=== PATIENT | male | born 1940 | race Caucasian/White ===

== ENCOUNTER 2016-11-25 09:37 | Inpatient (IN) | payer OTHER ==
[2016-11-25] VITALS (8 sets, daily range): BP systolic 121–158; BP diastolic 62–87
[~2016-11-25] VITALS: Ht 182.9 cm; Wt 95.8 kg
--- NOTE | ~2016-11-25 | PR ---
[place], [place] PROGRESS NOTE [facility]: [id number] UNIT #: [id number] ROOM: 419 DOCTOR: ILIR GLORIA MD,YOAV BIRTHDATE: [birth year] DOS: 11/27/2016 ADDENDUM TO THE PROGRESS NOTE DONE BY THE LAB SUPPORT TECHNICIAN: The patient was seen with [id number] encounter personally. Labs were reviewed. Physical examination performed. Decision made for the management personally done for the patient's today's visit. He agreed with the note which was done by the medical underwriter. The patient has been noted myelodysplastic syndrome diagnosed with bone marrow biopsy previously at [facility]. No further pulmonary workup at this time it is necessary. The patient has been noted chronic, stable problem. The patient has chronic granulomatous lung disease without any acute manifestations. YOAV HAZEL MD CM:PNTRANS [id number] YOAV GLORIA MD 11/28/16 0526 interface
--- NOTE | ~2016-11-25 | CON ---
[place], [place] REPORT OF CONSULTATION NAME: CHRISTEN KELLOGG UNIT #: [id number] ROOM: 416 DOCTOR: KAT MENDEZ MD BIRTHDATE: [birth year] DOS: 11/25/2016 HISTORY OF PRESENT ILLNESS: The patient is a pleasant 76-year-old Euro-Chinese gentleman who for the last 3 days has been complaining of chills, ____, fever, cold sweats, malaise as well as noticed bilateral cervical lymph node enlargement. [facility] and subsequently was told that he needs to go to the hospital for further evaluation and management. He also had a chest x-ray done which noted infiltrate and pulmonary nodule. He was also noted to have atrial fibrillation, for which he was started on Cardizem drip. PAST MEDICAL HISTORY: Significant for generalized anxiety disorder, hyperlipidemia and hypertension. SOCIAL HISTORY: He does not drink alcohol, smoked 1-1/2 packs per day for 45 years, quit in 2001 and no illicit drug use. PAST SURGICAL HISTORY: No surgical history. FAMILY HISTORY: Father at age 87 of Alzheimer's. Mother at age 95 of old age. ALLERGIES: No known allergies. MEDICATIONS: Azithromycin, ceftriaxone, sodium chloride, allopurinol, fluoxetine, hydrochlorothiazide, Naprosyn, Prilosec, simvastatin and terazosin. RADIOLOGY: CT of the chest showed the nodule noted on the current chest x-ray as a calcified granuloma. There are some areas of right upper lobe and right middle lobe scarring versus infiltration. The right hilar does not appear to be prominent. REVIEW OF SYSTEMS: CONSTITUTIONAL: No chills. No fatigue. No fever. No loss of appetite. No night sweats. No weakness. No weight loss. HEENT: No trouble swallowing. No loss of smell. No loss of hearing. No double vision. No pain. No discharge. ENT AND RESPIRATORY: No wheeze. No sore throat. No change in voice. No hearing loss. No nose bleed. No cough. No trouble breathing through nose. No shortness of breath. No coughing up blood. No epistaxis. CARDIOVASCULAR: No chest pain. No dizziness. No irregular heartbeat. No leg edema. No pain in legs while walking. No palpitations. No shortness of breath. DERMATOLOGIC: No acne. No hives. No laceration. No mole. No rash. ENDOCRINE: No cold intolerance. No diabetes. No fatigue. No hot flashes. No polydipsia. No polyuria. No urinating frequently. No weight loss. HEMATOLOGIC AND LYMPH: No fatigue. No easy bruising. GASTROENTEROLOGIC: No change in bowel habits. No indigestion. No frequent bloating. No vomiting blood. No abdominal cramping. No nausea. No heartburn. No vomiting. No abdominal pain. No dysphagia. No diarrhea. No constipation. [place], [place] REPORT OF CONSULTATION NAME: CHRISTEN KELLOGG UNIT #: [id number] ROOM: 416 DOCTOR: AKT MENDEZ MD BIRTHDATE: [birth year] No blood in stool. MALE REPRODUCTIVE: No testicular pain. No difficulty with erection. No diminished sexual drive. No penile discharge. MUSCULOSKELETAL: No back pain. No muscle pain or weakness. No neck pain. No tingling/numbness. No swelling/bruising. No osteoporosis treatment. OPTHALMOLOGIC: No double vision. No diminished vision. No loss of vision. UROLOGIC: No dysuria. No frequent nighttime urination. No pain with urination. No difficulty urinating. No blood in urine. No frequent urination. No urinary incontinence. NEUROLOGIC: No loss of sensation in specific body area. No vertigo. No burning pain in feet. No trouble with balance. No trouble with coordination. No loss of consciousness. No loss of feeling/power. No confusion. No headache. No tingling/numbness. PSYCHOLOGIC: No tinnitus. No headaches. No shortness of breath. No weight decrease. No nausea. No vomiting. No abdominal discomfort. No constipation. No diarrhea. No depression. No anxiety. PHYSICAL EXAMINATION: GENERAL: General appearance: Pleasant gentleman, in no apparent distress. VITAL SIGNS: Blood pressure 150/72, pulse 99, temperature 98.4 and respirations 14. HEENT: Oral mucosa appears intact. The external ears are normal in appearance. Nares are patent without lesions, exudates, erythema, or inflammation. Tongue is symmetrical. Uvula is midline. NECK AND THYROID: Neck shows no ulceration. Trachea is midline. Tender anterior cervical lymph node bilaterally about 1.7 cm. No thyromegaly. No carotid bruit or JVD. BREASTS: Normal. Nipples unremarkable. No drainage. No lumps felt on either side. HEART: Normal S1, S2, without significant murmur, rub, or gallop. LUNGS: Clear to auscultation and percussion with good air entry bilaterally. The patient is breathing easily without the use of accessory muscles. Diaphragmatic excursions are intact. ABDOMEN: No costovertebral angle tenderness. Soft. No organomegaly or masses. Nontender. No hernias present. Liver and spleen are not palpable. LYMPHATIC: No adenopathy noted in the cervical, supraclavicular, axillary, or inguinal regions. NEUROLGIC: Nonfocal. Oriented to person, place, and time. MENTAL STATUS: Appropriate for mood and affect. PERIPHERAL PULSES: No varicosities. Femoral and pedal pulses are palpable. EXTREMITIES: Without cyanosis, clubbing, or edema. No gross anomalies. LABORATORY DATA: Sodium 134, potassium 3.3, chloride 99, bicarb 25, creatinine of 1.99 and calcium 8.3. White count of 8.7, hemoglobin 12.9, hematocrit 37.5, MCV 85.8 and platelet count of 69,000. Peripheral smear shows metamyelocytes and myelocytes. ASSESSMENT: 1. Bilateral cervical lymphadenopathy, probably secondary to sepsis. 2. Possible pneumonia. [place], [place] REPORT OF CONSULTATION NAME: CHRISTEN KELLOGG UNIT #: [id number] ROOM: 416 DOCTOR: KAT MENDEZ MD BIRTHDATE: [birth year] 3. Thrombocytopenia of unknown etiology, probably sepsis/other causes. 4. Mild hyponatremia. PLAN: I had detailed discussion with the patient. We will reevaluate him in a few days. If he continues to have lymphadenopathy and overall situation improves, then he needs need further workup including a CT of the neck, etc. As far as the thrombocytopenia is concerned, we will review peripheral smears and get workup for thrombocytopenia. Depending upon that, further intervention. We will continue broad spectrum antibiotics. I had detailed discussion with the patient about it and he seemed to understand it. Ample time was given to the patient to ask me questions. We will follow. Thank you for consulting and letting me participate in the care of this interesting patient. KAT MENDEZ MD CM:CONSTR:REPORT OF CONSULTATION 1741 11/26/16 0948 interface
--- NOTE | ~2016-11-25 | CON ---
[place], [place] REPORT OF CONSULTATION NAME: CHRISTEN KELLOGG UNIT #: [id number] ROOM: 416 DOCTOR: JENNIFER ZARATE DO BIRTHDATE: [birth year] DOS: REASON FOR CONSULT: Pneumonia. CONSULT REQUESTED BY: Hospitalist service. This is a pulmonary consultation, evaluation and management. HISTORY OF PRESENT ILLNESS: This is a 76-year-old male who went to [facility] yesterday with concerns of cervical lymphadenopathy and symptoms that were thought related to the flu. The patient states he may have had fever. He was feeling fatigued, sweaty and chills. He was advised to come to the hospital by the [facility]. In the hospital, he was noted to have irregular and rapid rhythm in the ER and was started on Cardizem drip. His chest x-ray in the ED showed right nodule. Further imaging was done. He had a CT chest, which showed calcified granuloma and right upper lobe, right middle lobe scarring versus infiltration. The patient denies any history of arrhythmias or heart disease. The patient states he has history of bone marrow biopsy done at the ____ [facility], which was normal. The patient said last time he had enlarged lymph node was in his armpit and he was given antibiotics and they went away. The patient denies any current fevers, chills, nausea, vomiting, shortness of breath or chest pain at this time. REVIEW OF SYSTEMS: CONSTITUTIONAL: Denies weight loss, weight gain, fever or chills day before yesterday per patient. HEENT: Denies vision changes, denies hearing loss, ear pain, eye pain, mouth pain, nose pain, throat pain or dysphagia. CARDIOVASCULAR: Denies chest pain, lower extremity edema or palpitations. RESPIRATORY: Denies shortness of breath, cough, hemoptysis, wheezing, dyspnea on exertion, paroxysmal nocturnal dyspnea or sputum production. ABDOMINAL: Denies abdominal pain, nausea, vomiting, diarrhea, constipation, melena, hematochezia or loss of appetite. GENITOURINARY: Denies dysuria, hematuria, increase in frequency or urgency. NEUROLOGIC: Denies lightheadedness, dizziness or confusion. PSYCHIATRIC: Denies depression, anxiety or substance abuse. ENDOCRINE: Denies polydipsia, heat intolerance or cold intolerance. SKIN: Denies new rashes, lesions or ulcers. Remaining systems were reviewed with the patient. They were noted to be negative. PAST MEDICAL HISTORY: Depression, generalized anxiety disorder, GERD, gout, hyperlipidemia and hypertension. PAST SURGICAL HISTORY: History of bone marrow biopsy done at , history of vasectomy, history of EGD, history of colonoscopy and polypectomy. SOCIAL HISTORY: Does not drink alcohol or does not use any illicit drugs. Did smoke in the past, 1-1/2 packs per day for 45 years and quit in 2001. [place], [place] REPORT OF CONSULTATION NAME: CHRISTEN KELLOGG UNIT #: [id number] ROOM: 416 DOCTOR: JENNIFER ZARATE DO BIRTHDATE: [birth year] FAMILY HISTORY: Father at age 87 due to Alzheimer disease. Mother at age 95 due to leukemia. CURRENT MEDICATIONS: Azithromycin 500 mg p.o. daily, Rocephin 1 g q. day, hydrochlorothiazide 25 mg p.o. q. day, Prozac 20 mg p.o. q. day, allopurinol 300 mg p.o. q. day, Prilosec 20 mg p.o. q. day, terazosin 10 mg p.o. at bedtime, simvastatin 10 mg p.o. at bedtime, verapamil 80 mg q. 8 hours and other p.r.n. medications as noted in the chart. ALLERGIES: No known drug allergies. PHYSICAL EXAMINATION: VITAL SIGNS: T-max of 100 Fahrenheit, pulse of 105, respiratory rate 20, blood pressure is 132/87 and pulse ox is 97% on room air. GENERAL APPEARANCE: Alert, awake, responsive, cooperative, well groomed, no acute distress. HEENT: Shows the head was atraumatic. EYES: Nonicteric. NECK: Without lesions. There is slight palpable approximately 1.5 cm periauricular lymphadenopathy on the left side. HEART: Irregular rhythm, tachycardia. No edema in the lower extremities. LUNGS: Normal breath sounds. No respiratory distress. No rales, rhonchi, wheezing, stridor, stridor or pleural rub. ABDOMEN: Soft, positive bowel sounds, nontender, nondistended. No mass, rigidity, guarding or abdominal pain. EXTREMITIES: No clubbing, cyanosis, erythema or edema. NEUROLOGIC: Grossly intact. No focal neurological deficit. PSYCHOLOGICAL: Good historian. Fair judgment. Fair insight. Good recent memory. Good remote memory. Exhibits normal mood. Normal affect. SKIN: Warm and dry. No rashes, no ulcerations, no induration, no tightening. LABORATORY DATA: Admission CMP: BUN is 30, creatinine 1.99, sodium of 134, potassium of 3.3, calcium of 8.3. Troponin less than 0.015. AST 18, ALT 21. Lactic acid baseline at 1.2. CBC: White cell count of 8.7, hemoglobin of 12.9, platelet of 69. Chest x-ray on admission showed small lower lateral right perihilar infiltrate, right nodule. Recommended CT chest without contrast on admission showed the nodule noted on the chest x-ray represented calcified granuloma. There are small areas of right upper lobe and right middle lobe scarring versus infiltration. Right hilum does appear prominent. Strep screen of throat done on admission was negative for group A beta hemolytic Streptococcus. Group B cultures pending. Echocardiogram showed left ventricular EF of 70%, otherwise normal. Monospot test was negative. ESR was 72. IMPRESSIONS: 1. Right upper lobe, right middle lobe scarring versus infiltrate, possible viral etiology. 2. Old granulomatous disease. 3. Nonspecific lymphadenopathy. 4. Atrial fibrillation, rate controlled with verapamil. [place], [place] REPORT OF CONSULTATION NAME: CHRISTEN KELLOGG UNIT #: [id number] ROOM: [facility] DOCTOR: JENNIFER ZARATE DO BIRTHDATE: [birth year] 5. Acute renal failure with tubular necrosis. 6. Hypokalemia. 7. Tachycardia. 8. Hypertension. 9. Hyperlipidemia. 10. Depression. 11. Gastroesophageal reflux disease. 12. Gout. TREATMENT PLAN: 1. The patient can be continued on antibiotics, the patient can be discharged from pulmonary perspective. 2. Infectious disease is following and has ordered certain labs. Follow up with the labs with Infectious Disease. Cardiology is following for the AFib with RVR. 3. Dr. Conley is consulted for the bilateral cervical lymphadenopathy. 4. Supportive care. JENNIFER ZARATE DO YOAV HAZEL MD CM:CONSTR:REPORT OF CONSULTATION 1004 11/26/16 1139 interface
--- NOTE | ~2016-11-25 | PR ---
[place], [place] PROGRESS NOTE [id number] UNIT #: [id number] ROOM: 416 DOCTOR: JENNIFER ZARATE DO BIRTHDATE: [birth year] DOS: 11/27/2016 SUBJECTIVE: The patient was seen and evaluated today with Dr. Hazel. The patient is awake, alert and responsive. No nausea, vomiting, diarrhea, lightheadedness, dizziness, palpitations, chest pain or shortness of breath. The patient denies of any complaints at this time. He does believe his lymphadenopathy is improving some. OBJECTIVE: VITAL SIGNS: Temperature 98.1, pulse 98, respiratory rate 20, blood pressure 113/84, pulse ox is 96% at room air. GENERAL: Awake, alert, no distress, responsive, cooperative, noted with ebdg-pz-[id number] chronic obesity. NECK: Supple, without lesion, no ulceration. Trachea midline. Thyroid not enlarged. Palpable and slightly tender periauricular lymphadenopathy bilaterally, left greater than right. There was no supraclavicular lymphadenopathy. CARDIOVASCULAR: No murmur. Tachycardia is regular. No edema in lower extremities. RESPIRATORY: Normal breath sounds. No respiratory distress. Lung sounds are not diminished. There are no rales, rhonchi, wheezing or stridor. ABDOMEN: Soft, positive bowel sounds, nontender, nondistended. There are no masses or rebound tenderness, rigidity, guarding, or abdominal pain. EXTREMITIES: No clubbing, no cyanosis, no erythema, no edema. NEUROLOGIC: Grossly intact. No focal neurologic deficit. PSYCHOLOGIC: Good historian. Fair judgment, fair insight, good recent memory. SKIN: Warm and dry, no rashes, no ulceration, no induration, no tightening. LABORATORY DATA: Chemistry: Sodium 138, potassium 3.4, BUN 27, creatinine 1.81, glucose of 88. Hematology: White cell count of 6.7, hemoglobin of 11.3, platelet count of 66. Serology: Woods screen negative. HIV 1 and 2, fourth generation nonreactive. ASSESSMENT: 1. Nonspecific lymphadenopathy, possible viral etiology. 2. Chronic granulomatosis lung disease without any active manifestation at this time. 3. Thrombocytopenia, etiology unclear. The patient's records from bone marrow biopsy at [place], [place] showed pathologic markers indicating possibly myelodysplastic syndrome. 4. Atrial fibrillation, rate controlled with verapamil. TREATMENT PLAN: 1. Monitor and follow the recommendation of Infectious Disease services for any possibility of viral or bacterial infection. 2. Cardiology following for AFib. 3. Heme/Onc following for cervical lymphadenopathy and thrombocytopenia. 4. Supportive care at this time. [place], [place] PROGRESS NOTE NAME: CHRISTEN KELLOGG UNIT #: [id number] ROOM: 416 DOCTOR: JENNIFER ZARATE DO BIRTHDATE: [birth year] JENNIFER ZARATE DO YOAV HAZEL MD CM:PNOKSANA 1103 1142 JENNIFER ZARATE DO 11/27/16 1141 interface
--- NOTE | ~2016-11-25 | EKG ---
[place], [place] ELECTROCARDIOGRAM REPORT NAME: CHRISTEN KELLOGG UNIT #: [id number] ROOM: 416 DOCTOR: ILIR GLORIA MD,YOAV BIRTHDATE: [birth year] DOS: 11/25/2016 The electrocardiogram was done on 11/25/2016 at 10:10 am. The underlying rhythm appeared to be sinus arrhythmia with sinus tachycardia with heart rate of 111 beats per minute. EKG was noted somewhat low voltage with poor R-wave progression. YOAV HAZEL MD CM:EKGRPT:ELECTROCARDIOGRAM REPORT 1215 1247 YOAV GLORIA MD
--- NOTE | ~2016-11-25 | CON ---
[place], [place] REPORT OF CONSULTATION NAME: CHRISTEN KELLOGG [facility] #: [id number] UNIT #: [id number] ROOM: 416 DOCTOR: ILIR GLORIA MDYOAV BIRTHDATE: [birth year] DOS: 11/26/2016 PULMONARY CONSULTATION, EVALUATION AND MANAGEMENT. The patient was independently seen and examined. All the history was confirmed from the patient personally and physical examination performed. All the labs were reviewed. The note which has been dictated for this patient by the bilingual medical receptionist, was approved. HISTORY OF PRESENT ILLNESS: In summary, this is a 76-year-old male patient who has been admitted to the hospital. The patient started with symptoms of fever or chills and sweating which occurred for the past few days. The symptoms have been noted worsening. The patient stated that he has noted enlargement of the lymph nodes in the neck. He presented to the Emergency Room, was assessed. He has atrial fibrillation with rapid ventricular response noted on admission as a new onset treated with intravenous Cardizem drip. This morning, the patient was reported improvement in respiratory symptoms. He denies symptoms of chest pain or hemoptysis. REVIEW OF SYSTEM: As performed by the bilingual medical receptionist. PAST MEDICAL HISTORY: Essentially noted with history of: 1. Hyperlipidemia. 2. Essential hypertension. 3. Anxiety disorder. 4. Moderate obesity. PAST SURGICAL HISTORY: Noted with bone marrow biopsy in the past. SOCIAL HISTORY: The patient was noted as use of cigarettes younger age one and half pack of cigarettes per day, discontinued approximately in 1996. He is and does not have any children. There is no known history of occupation related pulmonary exposure described. FAMILY HISTORY: Reported father at the age of 87 years with complication of Alzheimer's disease and mother due to old age at the age of 9595 years old. MEDICATIONS: From home were noted use of allopurinol, fluoxetine, hydrochlorothiazide, naproxen, Prilosec, simvastatin, and terazosin. DRUG ALLERGY HISTORY: The patient was noted no known drug allergies. PHYSICAL EXAMINATION: GENERAL: A 76-year-old male who has been currently noted without any acute distress. Height of 6 feet, weight of 211 pounds, BMI 28.6. VITAL SIGNS: The temperature was noted as 100 degrees Fahrenheit, respiratory rate 18-20, heart rate of 104-87, blood pressure 139/71 to 149/79. The pulse oxygen saturation of the patient on room air was noted as 95% saturation. HEENT: Noted with vnub-rk-glmfqmpv chronic obesity. [place], [place] REPORT OF CONSULTATION NAME: CHRISTEN KELLOGG UNIT #: [id number] ROOM: [facility] DOCTOR: YOAV HUFF MD BIRTHDATE: [birth year] NECK: Supple. Small lymph node was palpated in the left periauricular area. No other significant palpable lymphadenopathy was noted. There was no supraclavicular lymphadenopathy. CARDIOVASCULAR SYSTEM: S1, S2 is audible. LUNGS: The patient was noted without any wheezing or crackles. Breaths are noted mildly decreased. There was no wheezing. ABDOMEN: Soft, moderate obesity, nontender. Bowel sounds present. EXTREMITIES: Shows no edema, clubbing, cyanosis. CENTRAL NERVOUS SYSTEM: The patient was nonfocal. SKIN: Showed no lesions or rashes. MUSCULOSKELETAL: No acute deformities. LABORATORY DATA: CBC on 11/25/2016 was noted with WBC count normal, platelet count decreased 69,000, hemoglobin 12.9, hematocrit 37.5. TSH was noted as normal yesterday. Lactic acid yesterday noted normal. CMP yesterday, BUN 30, creatinine 1.99, sodium 134. CMP of the patient this morning, BUN 27, creatinine 1.81, potassium 3.3. CBC this morning, platelet count was still noted decreased at 66,000. The HIV test was noted nonreactive today. The ESR was noted elevated at 72. The troponins were normal. The chest x-ray of the patient on 11/25/2016 does not show any acute pulmonary infiltration. The patient was noted as the nodule in the right lower lobe which appeared to be calcified granuloma. CT scan of the chest that was done without contrast yesterday, the patient would be considered limited for assessment of the mediastinal windows. However, there was calcification lymph nodes. The patient was noted in the left hilar area as well as a calcified granuloma was noted in the right lung as well. There was no noncalcified nodules present. Minimal area of infiltration was noted in the right upper lobe. There were no pleural effusions. IMPRESSION: 1. The patient who has been currently admitted to the hospital with nonspecific finding may be a viral syndrome to be considered. There was no clinical evidence of acute pneumonia. 2. Lymphadenopathy. The patient in the mediastinum will be considered related to chronic granulomatous lung disease without any active manifestation at this time would be considered. 3. Thrombocytopenia, etiology is unclear. Consider bone marrow problems as other etiology of acute reduction in the platelet count for other reasons. The patient was also suspected possibly to chronic kidney disease with some superimposed acute component may be related to the volume depletion and dehydration. PLAN OF MANAGEMENT: Monitor and follow the recommendation of Infectious Disease Services, which is already being investigating this patient for any possibility of viral or bacterial infection. Consider CT scan of the neck to assess for any potential lymphadenopathy present to be biopsied accordingly. There was no need for biopsy of the lymph nodes in the thorax. The patient is already seen by the Hematology Services as well for the assessment of the thrombocytopenia follow the recommendation. Usual care, other treatment plan and management. Abstinence from tobacco use. Clinical assessment of COPD. The patient needs to [place], [place] REPORT OF CONSULTATION NAME: CHRISTEN KELLOGG UNIT #: [id number] ROOM: [facility] DOCTOR: YOAV HUFF MD BIRTHDATE: [birth year] be done as an outpatient to consider any potential treatment if necessary after that. YOAV HAZEL MD CM:CONSTR:REPORT OF CONSULTATION 1204 11/27/16 0201 interface
--- NOTE | ~2016-11-25 | EKG ---
[place], [place] ELECTROCARDIOGRAM REPORT NAME: CHRISTEN KELLOGG UNIT #: [id number] ROOM: 416 DOCTOR: ILIR GLORIA MD,YOAV BIRTHDATE: [birth year] DOS: 11/26/2016 ELECTROCARDIOGRAM This EKG was done 11/25/2016 at 2300 hours and 33 minutes. The electrocardiogram for this patient currently suggest of atrial fibrillation with a rapid ventricular response for this patient with heart rate of 128 beats per minute. Poor R-wave progression, the patient is also noted in the chest leads. Nonspecific ST-T changes are noted in the I aVL. YOAV HAZEL MD CM:EKGRPT:ELECTROCARDIOGRAM REPORT 1209 1228 YOAV GLORIA MD
--- NOTE | ~2016-11-25 | PR ---
[place], [place] PROGRESS NOTE NAME: CHRISTEN KELLOGG UNIT #: [id number] ROOM: 419 DOCTOR: JENNIFER ZARATE DO BIRTHDATE: [birth year] DOS: 11/28/2016 SUBJECTIVE: The patient was seen and evaluated today with Dr. Hazel. The patient is alert, awake, responsive and oriented. The patient denies any nausea, vomiting, diarrhea, lightheadedness, dizziness, palpitations, chest pain or shortness of breath at this time. The patient states that he is slightly congested and he is feeling some gargling. OBJECTIVE: VITAL SIGNS: Temperature 97.6, pulse rate 87, respiratory rate 18, pulse ox of 96% on room air. GENERAL: Alert, awake, no distress, responsive, mild to moderate chronic obesity noted. NECK: Supple, without deviation. CARDIOVASCULAR: S1, S2 audible. RESPIRATORY: Normal breath sounds. No respiratory distress. Lung sounds are not diminished. There are no rales, rhonchi, wheezing or stridor. ABDOMEN: Soft, nontender. EXTREMITIES: No edema noted. LABORATORY DATA: White cell count of 7.2, hemoglobin of 10.6, platelet count of 68. Sodium of 138, BUN of 31, creatinine of 1.73, glucose of 168. ASSESSMENT: 1. Nonspecific lymphadenopathy, possible viral etiology. 2. Chronic granulomatous disease without any active manifestation at this time. 3. Thrombocytopenia, unclear etiology. The patient's record from bone marrow biopsy at [facility] showed myelodysplastic syndrome. 4. Atrial fibrillation. Cardiology is following. 5. PPD showed 19 mm induration. PLAN: Monitor and follow recommendation from infectious disease services and have patient continue on isoniazid, rifampin per infectious disease. The patient can have outpatient followup with hematology/oncology and infectious disease services. No supportive care at this time. No change of management from pulmonary perspective. JENNIFER ZARATE DO [place], [place] PROGRESS NOTE NAME: CHRISTEN KELLOGG UNIT #: [id number] ROOM: 419 DOCTOR: JENNIFER ZARATE DO BIRTHDATE: [birth year] YOAV HAZEL MD CM:ELICEO [id number] JENNIFER ZARATE DO 11/28/16 1501 interface
--- NOTE | ~2016-11-25 | PR ---
[place], [place] PROGRESS NOTE NAME: CHRISTEN KELLOGG UNIT #: [id number] ROOM: 419 DOCTOR: ILIR GLORIA MD,YOAV BIRTHDATE: [birth year] DOS: 11/28/2016 The patient was independently seen and examined today. The labs were reviewed. History was confirmed. PPD was reported positive as 15 mm for this patient that was done on this admission. The patient was started on the combination of INH, rifampin, and vitamin B6 to be continued for 3 months for latent tuberculosis infection, management per recommendation of Infectious Disease Services. The patient has been placed on the negative pressure isolation, which needs to be discontinued since there has not been any evidence of clinical suspicion of active tuberculosis, but TB Gold test remains pending. Negative pressure isolation to be discontinued for this patient. He has been considered for home discharge for this patient and to be managed as an outpatient for myelodysplastic syndrome with leukopenia, which was noted as the patient has been currently resolved and thrombocytopenia remains persistent. The note done by the medical typist was approved. YOAV HAZEL MD CM:PNTRANS [id number] YOAV GLORIA MD 11/29/16 0541 interface
[~2016-11-25 09:37] MED LIST: BLOOD PRESSURE; NAPROSYN500 MG PO; PROZAC20 MG PO
[2016-11-25 10:21] LABS: HEMATOCRIT 37.5 % (42.0-52.0); HEMOGLOBIN 12.9 g/dl (14.0-18.0); MEAN CELL VOLUME 85.8 fl (80.0-94.0); MEAN CORPUSCULAR HGB 29.5 pg (27.0-31.0); MEAN CORPUSCULAR HGB CONC 34.4 g/dl (33.0-37.0); MEAN PLATELET VOLUME 13.5 fl (9.6-12.3); PLATELET COUNT AUTOMATED 69 10*3/uL (130-400); RED BLOOD COUNT 4.37 10*6/uL (4.50-5.90); RED CELL DISTRI WIDTH 15.3 % (0-14.5); WHITE BLOOD COUNT 8.7 10*3/uL (4.8-10.8)
[2016-11-25 10:25] LABS: INTERNATIONAL NORM RATIO 1.1 (2.0-3.5)
[2016-11-25 10:35] LABS: ALBUMIN 3.4 gm/dl (3.1-4.5); ALKALINE PHOSPHATASE 99 U/L (45-117); BUN 30 mg/dl (7-24); CHLORIDE 99 mmol/L (98-107); CREATININE 1.99 mg/dL (0.70-1.30); POTASSIUM 3.3 mmol/L (3.5-5.1); SGOT/AST 18 IU/L (3-35); SGPT/ALT 21 U/L (12-78); SODIUM 134 mmol/L (136-145); TOTAL PROTEIN 7.9 gm/dL (6.4-8.2)
[2016-11-25 10:37] LABS: TROPONIN I < 0.015 ng/ml (<0.045)
[2016-11-25 10:49] LABS: TOTAL CELLS COUNTED 100 #CELLS
[2016-11-25 10:50] LABS: PLATELET SUFFICIENCY LOW (NORMAL)
[2016-11-25] MEDS ORDERED: PROZAC20 MG PO (12:53)
[2016-11-25] MEDS ORDERED: NAPROXEN250 MG PO (12:53)
[2016-11-25] MEDS ORDERED: ALLOPURINOL300 MG PO (12:54)
[2016-11-25] MEDS ORDERED: PRILOSEC20 M1 PO (12:54)
[2016-11-25] MEDS ORDERED: SIMVASTATIN40 MG PO (14:07)
[2016-11-25] MEDS ORDERED: TERAZOSIN HCL10 M1 PO (14:08)
[2016-11-25] MEDS ORDERED: HYDROCHLOROTHIA25 M1 PO (14:10)
[2016-11-26] VITALS: BP 135/58
[2016-11-26 06:47] LABS: HEMATOCRIT 34.3 % (42.0-52.0); HEMOGLOBIN 11.3 g/dl (14.0-18.0); MEAN CELL VOLUME 86.8 fl (80.0-94.0); MEAN CORPUSCULAR HGB 28.6 pg (27.0-31.0); MEAN CORPUSCULAR HGB CONC 32.9 g/dl (33.0-37.0); PLATELET COUNT AUTOMATED 66 10*3/uL (130-400); RED BLOOD COUNT 3.95 10*6/uL (4.50-5.90); RED CELL DISTRI WIDTH 15.5 % (0-14.5); WHITE BLOOD COUNT 6.7 10*3/uL (4.8-10.8)
[2016-11-26 06:55] LABS: ALBUMIN 2.9 gm/dl (3.1-4.5); CREATININE 1.81 mg/dL (0.70-1.30); MAGNESIUM 1.8 mg/dL (1.5-2.1); PHOSPHOROUS 2.2 mg/dL (2.5-4.9); POTASSIUM 3.4 mmol/L (3.5-5.1); TOTAL PROTEIN 6.7 gm/dL (6.4-8.2)
[2016-11-26 07:06] LABS: HIV 1+2 AB + HIV1 P24 AG Non Reactive (Non Reactive)
[2016-11-26 07:20] LABS: ATYPICAL LYMPHS 1 % (0-0); TOTAL CELLS COUNTED 100 #CELLS
[2016-11-26 07:21] LABS: PLATELET SUFFICIENCY LOW (NORMAL)
[2016-11-26 07:55] LABS: VITAMIN D, 25-HYDROXY 38.6 ng/mL (30-100)
[2016-11-26 08:00] VITALS: BP 139/71
[2016-11-26 12:00] VITALS: BP 113/84
[2016-11-26 16:00] VITALS: BP 133/61
[2016-11-26 20:00] VITALS: BP 149/61
[2016-11-27] VITALS: BP 120/76
[2016-11-27 05:14] LABS: TOTAL PROTEIN, SERUM 6.1 g/dL (6.0-8.5)
[2016-11-27 06:14] LABS: HEMATOCRIT 32.8 % (42.0-52.0); HEMOGLOBIN 10.7 g/dl (14.0-18.0); MEAN CELL VOLUME 87.9 fl (80.0-94.0); MEAN CORPUSCULAR HGB 28.7 pg (27.0-31.0); MEAN CORPUSCULAR HGB CONC 32.6 g/dl (33.0-37.0); MEAN PLATELET VOLUME 12.7 fl (9.6-12.3); PLATELET COUNT AUTOMATED 58 10*3/uL (130-400); RED BLOOD COUNT 3.73 10*6/uL (4.50-5.90); RED CELL DISTRI WIDTH 15.7 % (0-14.5); WHITE BLOOD COUNT 6.9 10*3/uL (4.8-10.8)
[2016-11-27 06:45] LABS: POTASSIUM 3.4 mmol/L (3.5-5.1)
[2016-11-27 06:47] LABS: CREATININE 1.82 mg/dL (0.70-1.30); PHOSPHOROUS 3.5 mg/dL (2.5-4.9)
[2016-11-27 06:51] LABS: PLATELET SUFFICIENCY LOW (NORMAL); TOTAL CELLS COUNTED 100 #CELLS
[2016-11-27 08:00] VITALS: BP 136/66
[2016-11-27 12:00] VITALS: BP 153/58
[2016-11-27 12:07] LABS: HIV-1 RNA BY PCR <20 (.)
[2016-11-27 16:00] VITALS: BP 132/56
[2016-11-27 16:09] LABS: ALPHA-1-GLOBULIN 0.3 g/dL (0.0-0.4); ALPHA-2-GLOBULIN 0.7 g/dL (0.4-1.0); BETA GLOBULIN 0.8 g/dL (0.7-1.3); GAMMA GLOBULIN 1.3 g/dL (0.4-1.8); GLOBULIN, TOTAL 3.1 g/dL (2.2-3.9); M-SPIKE Not Observed g/dL (Not Observed)
[2016-11-27 17:11] LABS: ALBUMIN, URINE RANDOM 40.4 % (.); ALPHA-1-GLOBULIN, URINE 9.6 % (.); ALPHA-2-GLOBULIN, URINE 8.6 % (.); GAMMA GLOBULIN, URINE 20.8 % (.); M-SPIKE % Not Observed % (Not Observed); PROTEIN,TOTAL - URINE RANDOM 25.4 mg/dL (Not Estab.)
[2016-11-27 20:00] VITALS: BP 123/52
[2016-11-28] VITALS: BP 105/48
[2016-11-28 06:06] LABS: HEMOGLOBIN 10.6 g/dl (14.0-18.0); MEAN CELL VOLUME 85.8 fl (80.0-94.0); MEAN CORPUSCULAR HGB 28.4 pg (27.0-31.0); MEAN CORPUSCULAR HGB CONC 33.1 g/dl (33.0-37.0); PLATELET COUNT AUTOMATED 68 10*3/uL (130-400); RED BLOOD COUNT 3.73 10*6/uL (4.50-5.90); RED CELL DISTRI WIDTH 15.5 % (0-14.5); WHITE BLOOD COUNT 7.2 10*3/uL (4.8-10.8)
[2016-11-28 06:26] LABS: CREATININE 1.73 mg/dL (0.70-1.30); POTASSIUM 3.6 mmol/L (3.5-5.1)
[2016-11-28 06:30] LABS: ATYPICAL LYMPHS 1 % (0-0); TOTAL CELLS COUNTED 100 #CELLS
[2016-11-28 06:31] LABS: PLATELET SUFFICIENCY LOW (NORMAL)
[2016-11-28 08:00] VITALS: BP 127/69
[2016-11-28 12:00] VITALS: BP 120/62
[2016-11-28] MEDS ORDERED: Vit. B650 MG PO (14:49)
[2016-11-28] MEDS ORDERED: INH300 MG PO (14:49)
[2016-11-28] MEDS ORDERED: Rimactane,Rifa300 MG PO (14:49)
[2016-11-28] MEDS ORDERED: VERAPAMIL HCL120 M1 PO (15:12)
[2016-11-28 19:05] LABS: HLA CLASS 1 ANTIBODY Positive (Negative); IIb/IIIa ANTIBODY Positive (Negative); Ia/IIa ANTIBODY Comment: (Negative); Ib/IX ANTIBODY Positive (Negative); PLT ASSOCIATED ANTI-la/lla Positive (Negative); PLT ASSOCIATED ANTI-llb/llla Positive (Negative)
[2016-12-01 14:11] LABS: TB Ag MINUS NIL VALUE >10.00 IU/mL (.); TB Ag VALUE >10.00 IU/mL (.); TB GOLD Positive (Negative)
== END 2016-11-28 16:18 | disposition home or self-care (01) | DRG 871 ==
LOC: ED 09:37 → 4E 11:16 → EDHOLD 11:16 → 4E 11:47
PROVIDERS: Internal Medicine Hematology & Oncology; Nurse Practitioner Family; Student in an Organized Health Care Education/Training Program; ADMIT Emergency Medicine
DX: A41.9 Sepsis, unspecified organism (principal); N17.0 Acute kidney failure with tubular necrosis; D69.6 Thrombocytopenia, unspecified; I48.0 Paroxysmal atrial fibrillation; E87.1 Hypo-osmolality and hyponatremia; E44.1 Mild protein-calorie malnutrition; I47.1 Supraventricular tachycardia; D64.9 Anemia, unspecified; J84.10 Pulmonary fibrosis, unspecified; R65.20 Severe sepsis without septic shock; I10 Essential (primary) hypertension; E78.5 Hyperlipidemia, unspecified; M1A.09X0 Idiopathic chronic gout, multiple sites, without tophus (tophi); K21.9 Gastro-esophageal reflux disease without esophagitis; F41.1 Generalized anxiety disorder; R59.1 Generalized enlarged lymph nodes; E87.6 Hypokalemia; D72.810 Lymphocytopenia; E66.8 Other obesity; R76.11 Nonspecific reaction to tuberculin skin test without active tuberculosis; F32.9 Major depressive disorder, single episode, unspecified; E83.39 Other disorders of phosphorus metabolism; N40.0 Benign prostatic hyperplasia without lower urinary tract symptoms; Z68.28 Body mass index [BMI] 28.0-28.9, adult; Z80.6 Family history of leukemia; Z87.891 Personal history of nicotine dependence; Z79.899 Other long term (current) drug therapy; Z82.0 Family history of epilepsy and other diseases of the nervous system

== ENCOUNTER → 2018-11-17 | Outpatient (CLI) | payer OTHER ==
[~2018-11-17] MED LIST changes: +ALLOPURINOL300 MG PO; +HYDROCHLOROTHIA25 M1 PO; +INH300 MG PO; +NAPROXEN250 MG PO; +PRILOSEC20 M1 PO; +Rimactane,Rifa300 MG PO; +SIMVASTATIN20 MG PO; +TERAZOSIN HCL10 M1 PO; +VERAPAMIL HCL120 M1 PO; +VERAPAMIL SR240 M1 PO; +Vit. B650 MG PO
--- NOTE | ~2018-11-17 | ST ---
[place], [place] EXERCISE STRESS TEST REPORT NAME: CHRISTEN KELLOGG REDWOOD LLCT #: [id number] UNIT #: [id number] ROOM: DOCTOR: CHELSIE ARRIETA BIRTHDATE: [birth year] DOS: 11/17/2018 STRESS TEST REPORT INDICATION: Shortness of breath and abnormal EKG. PROTOCOL: Exercise treadmill test, Julius protocol. FINDINGS: Baseline EKG showed normal sinus rhythm with first degree AV block with normal axis and normal intervals. No resting ST or T-wave abnormalities. There are anteroseptal Q-waves suggestive of possible prior AL. Resting heart rate was 90 with a baseline blood pressure of 160/50 mmHg. The patient exercised for a total of 8 minutes, achieving a peak heart rate of 150, which is 105% of the predicted maximum. Peak blood pressure is 172/60. Total workload achieved was 10 METs, which is above average for age. The patient reported no shortness of breath or chest pain during exercise. Stress EKG showed no evidence of ischemia. No arrhythmias were noted. There were occasional PACs and PVCs. IMPRESSION: 1. No evidence of ischemia on stress EKG. 2. Resting hypertension. 3. Normal blood pressure response to exercise. 4. Impaired heart rate recovery. 5. Baseline EKG was sinus rhythm with first degree AV block and evidence of prior anteroseptal infarct. 6. Above average functional capacity for age. Dr. CHELSIE ARRIETA MD CM:STRESS:EXERCISE STRESS TEST REPORT [id number] CHELSIE ARRIETA
--- NOTE | 2018-11-17 10:30 | NUR ---
INFORMED CONSENT OBTAINED FOR STANDARD GXT WITH DR. ARRIETA. RESTING EKG FIRST DEGREE BLOCK WITH MT OF 0.22 WITH SUPINE HR OF 90 WITH BP 160/50 AND HR OF 96 WITH BP OF 162/64 IN STANDING POSITION. HAS FREQUENT PAC'S AND OCCASIONAL PVC'S. PT COMPLETED 8:00 OF A STEVEN PROTOCOL WITH COMPLETION OF 2:00 OF STAGE III AT 3.4 MPH AND 14% GRADE. REACHED A PEAK HR OF 150 WHICH IS 105% OF PREDICTED MAX WITH A PEAK BP OF 172/60. TEST TERMINATED BECAUSE OF FATIGUE. HAD NO CHEST PAIN OR ANY ST CHANGES. HAS FREQUENT PAC'S WITH OCCASIONAL PVC'S. NEGATIVE STANDARD GXT. LAST RECOVERY HR OF 124 WITH BP OF 140/58. IV DISCONTINUED AND DISCHARGED IN STABLE CONDITION.
== END | disposition home or self-care (01) ==
LOC: CARD 00:12
DX: E78.5 Hyperlipidemia, unspecified (principal); I73.9 Peripheral vascular disease, unspecified; R94.31 Abnormal electrocardiogram [ECG] [EKG]; I10 Essential (primary) hypertension

== ENCOUNTER 2020-04-12 14:10 | Emergency (ER) | payer OTHER ==
[~2020-04-12] VITALS: Ht 182.8 cm; Wt 104.3 kg
[2020-04-12] MEDS ORDERED: ERYTHROMYCIN OPH1 GM OPH (15:51)
== END 2020-04-12 16:10 | disposition home or self-care (01) ==
LOC: ED 14:10
DX: H00.011 Hordeolum externum right upper eyelid (principal); Z79.899 Other long term (current) drug therapy; Z87.891 Personal history of nicotine dependence

== ENCOUNTER → 2023-07-31 | Outpatient (CLI) | payer OTHER ==
[~2023-07-31] MED LIST changes: +ASPIRIN CHEWABL81 MG PO; +CIPRO500 MG PO; +CRESTOR5 M1 PO; +ERYTHROMYCIN OPH1 GM OPH; +FEROSUL325 MG PO; +METRONIDAZOLE500 M1 PO; +PROZAC10 MG PO; +VITAMIN C1000 M5 PO; +XARE15TA PO; +XARELTO15 M1 PO
== END | disposition home or self-care (01) ==
LOC: RAD 08:20
PROVIDERS: ATTEND Nurse Practitioner Family
DX: R09.89 Other specified symptoms and signs involving the circulatory and respiratory systems (principal)